=== PATIENT | male | born 1945 | race Caucasian/White ===

== ENCOUNTER 2016-05-15 15:45 | Emergency (ER) | payer MEDICARE, OTHER ==
[~2016-05-15] VITALS: Ht 182.9 cm; Wt 90.9 kg
[~2016-05-15 15:45] MED LIST: ATOR80TA77 PO; LISI10TA PO; LORA10CA PO; METO25TA6 PO; OMEP40CA36 PO; OXYB15TA PO; RANI150C4 PO; [UNRECOGNIZED DRUG - OTHER] TP
[2016-05-15 15:48] VITALS: BP 133/86; PULSE 84; RESP 20; O2SAT 99
--- NOTE | 2016-05-15 16:20 | ED.REPORT ---
HPI-General Illness Date of Service May 15, 2016 ED Provider: Joseph Houston DO The patient is a 70 year old male with history of hypertension, coronary artery disease, and high cholesterol, who was sent to the emergency department by his PCP for evaluation. Yesterday morning the patient felt dizzy and fell to the ground. He hit his head into the wall and injured his left shoulder and right arm. He did not lose consciousness. He has noticed a mild headache. Later in the day his symptoms started to improve. This morning around 0300 he noticed the dizziness again while getting up and walking to use the restroom. This continued this morning when he woke up at 0600. He has needed to hold on to furniture, tapia, etc. to hold himself up when walking. He describes the dizziness as room-spinning. He mentioned this to the physician who was evaluating him this [facility] and was sent to see his PCP. His PCP sent him to the emergency department for further evaluation. He has experienced similar symptoms multiple times in the past but this episode has lasted longer. He also mentions that he has history of hearing loss and tinnitus. He has not tried any medication to help with this today. He takes 81 mg aspirin per day. He is not on any other blood thinners. Nursing Notes Stated Complaint: DIZZINESS/VERTIGO/GLF YESTERDAY-SENT FROM [facility] Chief Complaint: Neuro Symptoms/ Deficits Nursing Notes Reviewed: Yes Allergies: Coded Allergies: TAPE (Unverified Allergy, Unknown, UNKNOWN (BOTH ADHESIVE & PAPER), ) Scheduled ([fluoracil]) 5% TP BID Atorvastatin Calcium (Atorvastatin Calcium) 80 Mg Tablet 80 MG PO DAILY Lisinopril (Lisinopril) 10 Mg Tablet 10 MG PO DAILY Loratadine (Claritin) 10 Mg Capsule 2 MG PO DAILY Meclizine (Bonine) 25 Mg Tab.chew 25 MG PO DAILY Metoprolol Tartrate (Metoprolol Tartrate) 25 Mg Tablet 12.5 MG PO BID Omeprazole (Omeprazole) 40 Mg Capsule.dr 40 MG PO DAILY Oxybutynin Chloride ER (Oxybutynin Chloride ER) 15 Mg Tab.er.24 15 MG PO DAILY Ranitidine (Ranitidine) 150 Mg Capsule 150 MG PO BID General Time Seen by MD: 16:19 Chief Complaint Dizziness Hx Obtained From: Patient Arrived By: Walk-in Sudden in Onset?: Yes Onset Occurred: Yesterday Symptom Duration: Since onset Severity: Current: No pain currently Severity: Maximum: No pain Recent Healthcare: No recent hospitalization, Recent doctor visit Similar Sx Previous: No Past Medical History Past Medical History Vertigo BPH Coronary artery disease Hypertension High cholesterol Past Surgical History Prostate surgery Bladder surgery CABG Family History Noncontributory Smoking History Unknown if Ever Smoker Social History Other Social History: Good social support, , Local resident Ambulatory Status Independent Review of Systems Full Review of Systems Ears / Nose / Throat: Reports: Ear ringing bilateral, Hearing loss bilateral Musculoskeletal: Reports: Extremity pain, Joint pain, Denies: Neck pain Neurologic: Reports: Dizziness, Headache, Spinning sensation, Denies: Change LOC, Lightheaded Complete sys rev & neg: except as marked. Physical Exam Vital Signs Initial VS: Reviewed Neck: Supple, Non-tender, Full range of motion Respiratory: Breath sounds normal, Clear to auscultation, No respiratory distress Cardiovascular: Regular rate & rhythm, Heart sounds normal, Intact distal pulses Abdomen / GI: Soft, Non-tender, No guarding, No rebound, No distention Lymphatic: No lymphadenopathy Extremities: Vascular intact, Neuro intact, No swelling, No tenderness Skin: Warm, Dry, No cyanosis Psychiatric: Mood/affect normal, Behavior normal, Normal thought content General/Constitutional: Awake, Alert, No acute distress, Cooperative Head / Eyes: Atraumatic, Normocephalic, PERRL, EOMI, No nystagmus ENT: Atraumatic, Airway patent, Mucous membranes moist, Pharynx NL, Tympanic membs NL, Ext aud canal NL, Mastoid area NL Upper Extremities Upper Extremity / MS: Atraumatic, Inspection NL, Full range of motion, No swelling, Non-tender, No deformity, Neurologic intact, Vascular intact Neurologic: Oriented X3, Speech NL, No motor deficits, No sensory deficits, CN II - XII intact, Cerebellar NL, Memory NL Cerebellar Dysfunction: Negative: Finger-nose abnl, Heel-camacho abnl Strength 5/5 to all extremities. Sensation intact. No ataxia. Negative Romberg test. Interpretation & Diagnostics Lab Results Interpretation Test 05/15/16 16:20 Hold Urine Received (Received) ECG Interpretation ECG Interpretation: Sinus rhythm with a rate of [address] changes Time: 17:34 Interpreted by: ED physician CT Head Interpretation IMPRESSION: Other than scattered mild mucosal thickening of the sinuses there is no abnormality of the head CT without contrast in for trauma. Cause of headache and vertigo is not identified Dictated by: Elvis Preston M.D. on 05/15/2016 at 17:40 Study: Head CT no contrast Interpretation / Wet Read by: Interpret - Radiologist Re-Eval/Medical Decision Med Decision/Clinical Course 70-year-old male with a history of hearing loss and tinnitus presents with true vertigo which led to a fall yesterday. He hit his head but did not lose consciousness. The fall is preceded by an episode of vertigo/room spinning. He has no significant head or neck tenderness at this time. He is not on blood thinners.. His postural vital signs are normal. His head CT is negative. His symptoms resolved with meclizine. I suggested to the patient that he may have M nire's disease and recommended he decrease salt intake. Source of Hx: Old records, Family Time of Eval: 16:46 Re-Evaluation/Progress Note: Discussed plan for head CT, EKG, and Meclizine. Time of Eval: 17:30 Re-Evaluation/Progress Note: Normal posturals Time of Eval: 18:11 Re-Evaluation/Progress Note: Rechecked the patient. Discussed results, diagnosis, and plan for discharge. All questions were addressed. Counseled Regarding: Diagnosis, Lab results, Need for follow-up, When/why to return to ED Discharge & Departure Primary Impression: Vertigo Additional Impressions: Fall from ground level Head injury Encounter type: initial encounter Qualified Code: S09.90XA - Unspecified injury of head, initial encounter Disposition: Home Discharge Condition All VS Reviewed: Yes Condition: Stable Patient Instructions: Vertigo (ED) Additional Instructions: Thank you for entrusting us with your care today. I believe your symptoms are consistent with vertigo. Your head CT and EKG today are reassuring. You can use Meclizine as needed for your dizziness. Followup with your regular doctor next week for recheck. You can discuss the option for the ear patches to prevent this from happening while you are on your cruise. Your symptoms could be related to Meniere's disease. This is something else you could discuss with your primary care provider. It may help to decrease your salt intake. Please return to the emergency department if you develop focal weakness, numbness, facial droop, slurred speech, vision changes, or any other new or concerning symptoms. Referrals: Lawrence Keith MD (PCP) Scribe Attestation Portions of this note were transcribed by Danielle Handy. I, Dr. Houston personally performed the history, physical exam and medical decision-making; I reviewed and confirmed the accuracy of the information in the transcribed note. Signed by: Hermilo Matt, 05/15/2016 at 1820. copies to: Lawrence Keith MD, Gary R DO May 15, 2016 16:20 Danielle Handy May 15, 2016 16:33
--- NOTE | 2016-05-15 17:46 | DRSVH ---
PROCEDURE: CT BRAIN WITHOUT CONTRAST ([id number]) INDICATIONS: headache, head trauma, vertigo TECHNIQUE: Noncontrast 4.5 mm thick angled axial sections acquired from the foramen magnum to the vertex, with c oronal reformats. COMPARISON: [facility], CT, BRAIN W/O CONTRAST, 10/21/2007, 13:40. FINDINGS: Image quality: Excellent. CSF spaces: Basal cisterns are patent. No extra-axial fluid collections. The ventricles are symmet siva in size and shape. Brain: No intracranial bleeds or masses. There is cerebral volume loss for age, with resultant vent ricular and sulcal prominence. There are periventricular and deep white matter chronic small vessel ischemic changes. There is intracranial internal carotid artery atherosclerosis. Skull and face: Calvarium and visualized facial bones appear intact, without suspicious lesions. Sinuses: Visualized sinuses and mastoids are clear except for scattered mucosal thickening in the ri ght frontal sinus and the posterior left ethmoid sinuses. IMPRESSION: Other than scattered mild mucosal thickening of the sinuses there is no abnormality of th e head CT without contrast in for trauma. Cause of headache and vertigo is not identified Dictated by: Elvis Preston M.D. on 05/15/2016 at 17:40 Approved by: Elvis Preston M.D. on 05/15/2016 at 17:44
[2016-05-15 17:50] VITALS: BP 123/79; PULSE 58; RESP 16; O2SAT 97
[2016-05-15 17:55] VITALS: BP 121/87; PULSE 77; RESP 18; O2SAT 97
[2016-05-15] MEDS ORDERED: MECL-114 PO (18:30)
== END 2016-05-15 18:42 | disposition home or self-care (01) ==
LOC: SED 15:49
DX: R42 Dizziness and giddiness (principal); S09.90XA Unspecified injury of head, initial encounter; W01.198A Fall on same level from slipping, tripping and stumbling with subsequent striking against other object, initial encounter; Y92.9 Unspecified place or not applicable; Y93.9 Activity, unspecified; Y99.9 Unspecified external cause status; I10 Essential (primary) hypertension; I25.10 Atherosclerotic heart disease of native coronary artery without angina pectoris; Z95.1 Presence of aortocoronary bypass graft

== ENCOUNTER 2016-09-28 09:20 | Day surgery (SDC) | payer OTHER ==
[~2016-09-28] VITALS: Ht 182.9 cm; Wt 86.5 kg
[~2016-09-28 09:20] MED LIST changes: +ASPI-973 PO; -OXYB15TA PO; -RANI150C4 PO; +Sodium Chloride LOK Flush 10 mL Syringe IV PRN; -[UNRECOGNIZED DRUG - OTHER] TP; +fentaNYL-PF 50 mCg/mL 2 mL Inj IVPUSH PRN
[2016-09-28 09:47] VITALS: BP 134/80; PULSE 54; RESP 16; O2SAT 96
[2016-09-28] MEDS ORDERED: OXYB5TAB10 PO (09:49)
[2016-09-28] MEDS: 0.9% Sodium Chloride 1,000 ML IV SCH ×2 (10:10→10:39)
[2016-09-28 10:56] VITALS: BP 95/61; PULSE 50; RESP 14; O2SAT 96
[2016-09-28 11:06] VITALS: BP 87/62; PULSE 48; O2SAT 96
[2016-09-28 11:18] VITALS: BP 90/58; PULSE 59; O2SAT 97
--- NOTE | 2016-09-28 22:14 | ENDO ---
[address] [address] ENDOSCOPY PROCEDURE PATIENT: JEAN GUERRA : 1945 MR#: [id number] ADMIT: 09/28/2016 JOB ID: [id number] DATE OF PROCEDURE: 09/28/2016 PRIMARY PROVIDER: Karen Mosley DO. PROCEDURE: 1. Esophagogastroduodenoscopy with biopsy. 2. Colonoscopy with cold forceps polypectomy. INDICATIONS: A 70-year-old male with longstanding symptoms of increased sputum production that are largely attenuated by PPI consumption. He also has a personal history of colon polyps. Both EGD and colonoscopy are therefore pursued. EQUIPMENT: 1. GIF-H180J. 2. PCF-H180AL. SEDATION: 1. Versed 5 mg. 2. Fentanyl 100 mcg. COMPLICATIONS: None identified. BOWEL PREPARATION: Fair, adequate exam. PROCEDURE INFORMATION: After the risks and benefits were explained, written and verbal informed consent was obtained. The patient was brought into the endoscopy suite and placed into the left lateral decubitus position. Sedation was achieved using the above-stated medications with the addition of oxygen via nasal cannula. The scope was introduced into the mouth through the bite block and advanced to the second portion of the duodenum. The scope was slowly withdrawn to carefully examine the mucosa for any defects or lesions. Retroflexed views were accomplished in the stomach. The stomach was decompressed. The scope was removed from the patient who tolerated the procedure well. The patient was then turned around. A digital rectal examination accomplished. Moderate internal hemorrhoids were noted. The scope was introduced into the rectum and advanced under direct visualization to the cecum as identified by the appendiceal orifice and ileocecal valve. The scope was slowly withdrawn to carefully examine the mucosa for any defects or lesions. Multiple direct views were made through the dentate line for exclusion of pathology. The colon was decompressed. The scope was removed the patient who tolerated the procedure well. FINDINGS: 1. Duodenum: This appeared visually unremarkable from the bulb through to the second portion. 2. Stomach: The patient had mild diffuse gastropathy throughout. No ulcers. No mass lesions. No outlet obstruction. Random biopsies were taken for exclusion of Helicobacter or other pathology. Retroflexed views of the LES disclosed a small sliding hiatal hernia. 3. Esophagus: The squamocolumnar junction correlated with the top of the gastric folds. The GE junction was at 41 cm from the incisors. There was a small sliding hiatal hernia present. A nonobstructing Schatzki's ring without any obvious inflammation was present. There was a small, perhaps a couple of millimeter tongue of salmon-colored mucosa extending up on top of the Schatzki's ring and this area was targeted for biopsy to exclude the presence of specialized intestinal metaplasia. Otherwise, throughout the esophagus there were no other significant mucosal abnormalities. 4. Colon: A couple of diminutive polyps were removed from the left colon using cold forceps. Otherwise, no significant colonic pathology. ENDOSCOPIC DIAGNOSES: 1. Mild gastropathy. 2. Hiatal hernia. 3. Nonobstructing Schatzki's ring with slightly irregular Z-line. 4. Colon polyps. 5. Hemorrhoids. RECOMMENDATIONS: 1. Await histopathology. 2. Continue anti-reflux therapy. 3. If specialized intestinal metaplasia is present, repeat EGD in the next 9-12 months. 4. Repeat colonoscopy in five years.
--- NOTE | 2016-10-01 09:34 | PATH ---
SURGICAL PATHOLOGY Attending Physician:Pedro Araiza CASE STATUS: Signed Out PATIENT NAME: JEAN GUERRA PID: [id number] : 1945 DATE COLLECTED:09/28/2016 23:11 SPECIMEN: 1: Gastric, Biopsy 2: Esophagus, Biopsy 3: Colon, Polyp CLINICAL HISTORY: 1). GASTRIC BIOPSY - R/O H.PYLORI 2). SCHATZKI RING BIOPSY 3). LEFT COLON POLYPS FINAL DIAGNOSIS: 1. Stomach, Biopsy: Antral and body-type mucosa with no diagnostic abnormality. Negative for Helicobacter organisms. Negative for intestinal metaplasia. Negative for dysplasia and malignancy. 2. Esophagus, Schatzki Ring, Biopsy: Squamocolumnar junctional mucosa with no diagnostic abnormality. Negative for intestinal metaplasia. Negative for dysplasia and malignancy. 3. Left Colon, Polyps, Biopsies: Tubular adenomas. ICD10: D12.6 GROSS DESCRIPTION: Received three formalin-filled containers, each labeled with the patient's name. 1. In a container labeled "gastric", specimen consists of a 0.3 x 0.3 x 0.2 cm portion of tissue which is entirely submitted in cassette 1A. 2. In a container labeled "Schatzki ring" specimen consists of a 0.2 x 0.1 x 0.1 cm portion of tissue which is entirely submitted in cassette 2A. 3. The specimen is labeled "left colon polyps" and consists of two portions of tissue which aggregate to 0.4 x 0.3 x 0.3 cm. The specimen is entirely submitted in cassette 3A. ([facility] [place]:[id number]) ICD-9 CODES: CPT CODES: 1: 75736 2: 79056 3: 89728 Electronically Signed Out Ellen Parnell MD [facility] [address], [place] [address] Technical component performed at [facility], [address] [place] [address] Ave[address], [place], [address]
== END 2016-09-28 23:59 | disposition home or self-care (01) ==
LOC: END 09:20
PROVIDERS: ATTEND Internal Medicine Gastroenterology
DX: Z12.11 Encounter for screening for malignant neoplasm of colon (principal); Z86.010 Personal history of colon polyps; D12.4 Benign neoplasm of descending colon; K64.8 Other hemorrhoids; K44.9 Diaphragmatic hernia without obstruction or gangrene; K31.9 Disease of stomach and duodenum, unspecified; K21.9 Gastro-esophageal reflux disease without esophagitis; K22.2 Esophageal obstruction; I10 Essential (primary) hypertension; I25.10 Atherosclerotic heart disease of native coronary artery without angina pectoris; N40.1 Benign prostatic hyperplasia with lower urinary tract symptoms; N13.8 Other obstructive and reflux uropathy; R39.15 Urgency of urination; E78.00 Pure hypercholesterolemia, unspecified; Z79.82 Long term (current) use of aspirin; Z95.1 Presence of aortocoronary bypass graft
CPT/HCPCS: 43239; 45380; 99153; G0500; J2250; J3010; J7030